=== PATIENT | female | born 1975 | race African-American/Black ===

== ENCOUNTER 2022-04-18 02:32 | Emergency (ER) | payer OTHER ==
[~2022-04-18] VITALS: Ht 157.5 cm; Wt 92.1 kg
[2022-04-18] MEDS ORDERED: IBUPROFEN 200 MG TAB PO ONE (03:00)
[2022-04-18] MEDS ORDERED: CEFTRIAXONE 1 GM VIAL IM ONE (03:15)
[2022-04-18] MEDS ORDERED: IBUPROFEN 600 MG TAB ONE (03:15)
[2022-04-18] MEDS ORDERED: CEFTRIAXONE 1 GM VIAL ONE (03:15)
[2022-04-18 03:17] VITALS: BP 167/94
== END 2022-04-18 03:23 | disposition home or self-care (01) ==
LOC: FSED 02:56
DX: N39.0 Urinary tract infection, site not specified (principal)
CPT/HCPCS: 81003; 96372; 99283; J0696

== ENCOUNTER 2022-12-05 15:28 | Emergency (ER) | payer OTHER ==
[~2022-12-05] VITALS: Ht 157.5 cm; Wt 91.9 kg
[2022-12-05] MEDS ORDERED: PREDNISONE20 MG PO (16:41)
[2022-12-05] MEDS ORDERED: AZITHROMYCIN250 MG PO (16:41)
[2022-12-05] MEDS ORDERED: VENTOLIN HFA18 GM INH (16:41)
== END 2022-12-05 16:47 | disposition home or self-care (01) ==
LOC: FSED 15:32
DX: R05.9 Cough, unspecified (principal); J40 Bronchitis, not specified as acute or chronic
CPT/HCPCS: 71046; 83518; 87400; 99283

== ENCOUNTER 2023-04-11 17:08 | Emergency (ER) | payer OTHER ==
[~2023-04-11] VITALS: Ht 157.5 cm; Wt 88.7 kg
[~2023-04-11 17:08] MED LIST: AZITHROMYCIN250 MG PO; PREDNISONE20 MG PO; VENTOLIN HFA18 GM INH
[2023-04-11 17:16] VITALS: O2SAT 99
[2023-04-11] MEDS ORDERED: DEXAMETHASONE SOD PHOS INJ 4 MG/ML SDV IM ONE (17:30)
[2023-04-11] MEDS ORDERED: KETOROLAC TROMETHAMINE 30 MG/ML VIAL IM STA (17:30)
[2023-04-11] MEDS ORDERED: DEXAMETHASONE SOD PHOS INJ 4 MG/ML SDV ONE (17:37)
[2023-04-11] MEDS ORDERED: KETOROLAC TROMETHAMINE 30 MG/ML VIAL ONE (17:37)
[2023-04-11] MEDS ORDERED: KETOROLAC TROME10 MG PO (18:02)
[2023-04-11] MEDS ORDERED: CYCLOBENZAPRINE5 MG PO (18:03)
[2023-04-11] MEDS ORDERED: SALONPAS1 EACH EXT (18:04)
== END 2023-04-11 18:47 | disposition home or self-care (01) ==
LOC: FSED 17:12
DX: M54.42 Lumbago with sciatica, left side (principal); M51.36 Other intervertebral disc degeneration, lumbar region; F17.210 Nicotine dependence, cigarettes, uncomplicated
CPT/HCPCS: 72100; 81025; 96372; 99283; J1100; J1885